=== PATIENT | male | born 1940 | race Caucasian/White ===

== ENCOUNTER 2017-10-02 13:25 | Outpatient (CLI) | payer OTHER ==
--- NOTE | 2017-10-02 14:38 | ULT ---
RIGHT LOWER EXTREMITY VENOUS ULTRASOUND WITH DOPPLER: History: Pain. Comparison: None. Technique: Grayscale, color flow, doppler imaging and spectral waveform analysis performed of the rig ht lower extremity venous system. FINDINGS: There is compressibility, presence of flow, and augmentation in the common femoral vein, femoral vein , and popliteal vein. There is flow in the greater saphenous vein, profunda vein, and posterior tibia l vein. IMPRESSION: No evidence of thrombus in the right lower extremity venous system. POS: ROSARIO
== END 2017-10-02 13:26 | disposition home or self-care (01) ==
LOC: ULT 13:25
PROVIDERS: ATTEND Family Medicine
DX: M79.651 Pain in right thigh (principal)

== ENCOUNTER 2018-04-23 08:38 | Outpatient (CLI) | payer OTHER | END 2018-04-23 08:39 | disposition home or self-care (01) | LOC: BICRAD 08:38 | PROVIDERS: ATTEND Internal Medicine Critical Care Medicine | DX: R06.00 Dyspnea, unspecified (principal); J98.6 Disorders of diaphragm; J92.9 Pleural plaque without asbestos; R91.8 Other nonspecific abnormal finding of lung field; I70.0 Atherosclerosis of aorta | CPT/HCPCS: 71046 ==

== ENCOUNTER 2018-10-09 12:24 | Outpatient (CLI) | payer OTHER ==
--- NOTE | 2018-10-09 13:45 | RAD ---
PA AND LATERAL CHEST: Comparison: 04-23-18 History: Cough. FINDINGS: Heart size is upper limits of normal. There is chronic appearing pleural change in the right base. I do not see any focal infiltrative process. IMPRESSION: Stable chest. POS: ORION
== END 2018-10-09 12:25 | disposition home or self-care (01) ==
LOC: BICRAD 12:24
PROVIDERS: ATTEND Family Medicine
DX: J20.9 Acute bronchitis, unspecified (principal)
CPT/HCPCS: 71046

== ENCOUNTER 2018-12-30 00:19 | Outpatient (CLI) | payer MEDICARE ==
[2018-12-30 18:20] LABS: #Basophils 0.1 thou/uL (0.0-0.2); #Eosinphils 0.5 thou/uL (0.0-0.7); #Lymphocytes 2.2 thou/uL (1.20-3.40); #Monocytes 0.8 thou/uL (0.11-0.59); #Neutrophils 5.1 thou/uL (1.40-6.50); %Basophils 0.7 % (0.0-1.0); %Eosinophils 5.5 % (0.0-10.0); %Lymphocytes 25.6 % (21.0-51.0); %Monocytes 8.8 % (0.0-10.0); %Neutrophils 59.4 % (42.0-75.0); Hemoglobin 13.9 g/dL (14.0-18.0); Mean Corpuscular HGB CONC 32.8 g/dL (32.0-36.0); Mean Corpuscular Hemoglobin 30.4 pg (27.0-31.0); Mean Corpuscular Volume 92.8 fL (78.0-98.0); Mean Platelet Volume 6.8 fL (7.4-10.4); Platelet Count 313 thou/uL (130-400); RBC Distribution Width 12.9 % (11.5-14.5); Red Blood Cell (RBC) Count 4.57 mill/uL (4.70-6.10); White Blood Cell (WBC) Count 8.5 thou/uL (4.8-10.8)
[2018-12-30 18:22] LABS: Bilirubin Negative (Negative); Blood, Urine Negative (Negative); Clarity CLEAR (Clear); Glucose, Urine (Dipstick) 100 mg/dL (Negative); Leukocyte Negative (Negative); Nitrite Negative (Negative); Protein, Urine (Dipstick) Negative (Neg-Trace); Specific Gravity, Urine 1.019 (1.002-1.036); Urobilinogen 0.2 mg/dL (0.2-1.0); pH, Urine 5.5 (5.0-9.0)
[2018-12-30 18:25] LABS: Bacteria/HPF None Seen HPF (None Seen); Hyaline Casts/LPF 0-3 HYALINE CAST LPF (0-3 Hyaline); Squamous Epithelial None Seen HPF (0-3); WBC/HPF None Seen HPF (0-3)
[2018-12-30 18:26] LABS: INR-International Normal Ratio 0.9; PTT 27.1 SEC (22.9-36.1)
[2018-12-30 18:37] LABS: Anion Gap 15 mmol/L (10-20); BUN (Urea Nitrogen) 23 mg/dL (8.4-25.7); Calc. Creatinine Clearance 0 mL/min (70-130); Calcium 10.1 mg/dL (7.8-10.44); Carbon Dioxide 29 mmol/L (23-31); Chloride 101 mmol/L (98-107); Estimated GFR-MDRD 69; Glucose 180 mg/dL (83-110); Potassium 3.6 mmol/L (3.5-5.1); Sodium 141 mmol/L (136-145)
--- NOTE | 2019-01-01 07:40 | EKG ---
Test Reason : Blood Pressure : / mmHG Vent. Rate : 069 BPM Atrial Rate : 069 BPM P-R Int : 160 ms QRS Dur : 092 ms QT Int : 422 ms P-R-T Axes : 022 -09 044 degrees QTc Int : 452 ms Normal sinus rhythm Moderate voltage criteria for LVH, may be normal variant Possible Inferior infarct , age undetermined Abnormal ECG When compared with ECG of 03-APR-2013 20:25, Borderline criteria for Inferior infarct are now Present Nonspecific T wave abnormality has replaced inverted T waves in Inferior leads Nonspecific T wave abnormality has replaced inverted T waves in Anterior leads Confirmed by EBONY ALFONSO ([id number]) on 01/01/2019 7:40:06 AM Referred By: VALERIANO Confirmed By:EBONY ALFONSO
== END 2018-12-30 00:20 | disposition home or self-care (01) ==
LOC: LABBT 00:19
PROVIDERS: ATTEND Orthopaedic Surgery
DX: Z01.818 Encounter for other preprocedural examination (principal); M17.11 Unilateral primary osteoarthritis, right knee
CPT/HCPCS: 80048; 81001; 85025; 85610; 85730; 86850; 86900; 86901; 87081; 93005; 93010

== ENCOUNTER 2019-01-05 05:27 | Inpatient (IN) | payer MEDICARE ==
[2018-12-30 17:21] VITALS: BMI 30.1
--- NOTE | 2019-01-01 09:07 | HP ---
HISTORY OF PRESENT ILLNESS: The patient is a 78-year-old male with a long history of progressive problems with the right knee without injury. He has had progressive pain despite rest, restriction of activities, use of anti-inflammatory medications, and cortisone injections. The pain is now interfering with day-to-day activities including walking, getting dressed, and sleeping. PAST MEDICAL HISTORY: The patient has history of hypertension, gout, and diabetes. 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 CURRENT MEDICATIONS: Include: 1. Aspirin. 2. [place]-3. 3. Lipitor. 4. Valsartan. 5. Allopurinol. 6. Levothyroxine. 7. Chlorthalidone. 8. Metformin. ALLERGIES: HE HAS NO KNOWN ALLERGIES. FAMILY HISTORY: Otherwise unremarkable. SOCIAL HISTORY: Otherwise unremarkable. REVIEW OF SYSTEMS: Otherwise unremarkable. PHYSICAL EXAMINATION: GENERAL: Reveals a healthy male. HEENT: Unremarkable. NECK: Supple. CHEST: Clear HEART: Regular rate and rhythm. ABDOMEN: Soft, nontender. RECTAL: Deferred. GENITAL: Deferred. EXTREMITIES: Pertinent findings are related to the right knee. There is a trace effusion. There is a slight varus. There is tenderness over the medial joint line. Range of motion is 5 to 125 degrees. There is pain with further flexion. There is no instability. NEUROVASCULAR: Intact. Good capillary refill. There is right antalgic gait. DIAGNOSTIC STUDIES: X-rays of the knee reveal medial joint space narrowing and a large osteochondral defect in the weightbearing surface of the medial femoral condyle consistent with osteonecrosis with definite progression from previous x-rays. IMPRESSION: 1. Degenerative arthritis and osteonecrosis, right knee. 2. History of diabetes. 3. History of hypertension. 4. 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 PLAN: Right total knee replacement. The nature of surgery, length of recovery, and potential complications such as infection, loss of motion, incomplete relief, delayed wound healing, neurovascular injury, thromboembolic phenomena, possible transfusion, and need for revision have been discussed in detail. Job ID: [id number]
[2019-01-05] MEDS ORDERED: Vancomycin HCl 1.5 GM in Sodium Chloride 0.9% 250 ML 300 ML IVPB SCH ×2 (06:00→20:00)
[2019-01-05] MEDS ORDERED: CEFAZOLIN 2 GM in Premix Bag 1 BAG IVPB SCH (06:00)
[2019-01-05] MEDS ORDERED: Sodium Chloride 0.9% 100 ML ONE (06:20)
[2019-01-05] MEDS ORDERED: Tranexamic Acid 1,000 MG/10 ML VIAL ONE ×2 (06:20→08:54)
[2019-01-05] MEDS ORDERED: Fentanyl 100 MCG/2 ML VIAL ONE ×3 (06:34→09:25)
[2019-01-05] MEDS ORDERED: Midazolam HCl 2 mg/2 ml Vial ONE (06:34)
[2019-01-05] MEDS ORDERED: Promethazine HCl 25 MG/ML VIAL IM PRN (07:33)
[2019-01-05] MEDS ORDERED: Ropivacaine HCl/PF 250 ML in Premix Bag 1 BAG NERVE BLCK SCH (07:33)
[2019-01-05] MEDS ORDERED: Ondansetron PF 4 MG/2 ML Vial IVP PRN ×2 (07:33→09:17)
[2019-01-05] MEDS ORDERED: Zolpidem Tartrate 5 MG TAB PO PRN ×2 (07:33→09:17)
[2019-01-05] MEDS ORDERED: traMADol HCl 50 MG TAB PO PRN ×3 (07:33→09:17)
[2019-01-05] MEDS ORDERED: Fentanyl 100 MCG/2 ML VIAL IV PRN (07:33)
[2019-01-05] MEDS ORDERED: Bupivacaine HCl 0.5%/Epinephrine 1:200,000/PF 30 ml Vial ONE (07:39)
[2019-01-05] MEDS ORDERED: Ketorolac Tromethamine 30 MG/ML VIAL ONE (09:08)
[2019-01-05] MEDS ORDERED: Tranexamic Acid 1,000 MG in Sodium Chloride 0.9% 100 ML IVPB SCH ×2 (09:15→09:17)
[2019-01-05] MEDS ORDERED: Fentanyl 100 MCG/2 ML VIAL SLOW IVP PRN ×2 (09:17)
[2019-01-05] MEDS ORDERED: diphenhydrAMINE 25 MG CAP PO PRN (09:17)
[2019-01-05] MEDS ORDERED: Promethazine HCl 25 MG/ML VIAL SLOW IVP PRN (09:17)
[2019-01-05] MEDS ORDERED: Acetaminophen 325 MG TAB PO PRN (09:17)
[2019-01-05] MEDS ORDERED: HYDROcodone/Acetaminophen 10/325 mg Tablet PO PRN ×2 (09:17)
--- NOTE | 2019-01-05 09:39 | OP ---
DATE OF PROCEDURE: 01/05/2019 SHOPPING INVESTIGATOR: Janel Low PA-C. ANESTHESIA: General plus adductor canal and sciatic nerve blocks. PREOPERATIVE DIAGNOSIS: Degenerative arthritis, right knee. POSTOPERATIVE DIAGNOSIS: Degenerative arthritis, right knee. PROCEDURE PERFORMED: Right total knee replacement with computer-assisted navigation with cemented [place] triathlon components (#5 femoral component, #5 primary tibial base plate with 9 mm CS plastic insert, and A35 all plastic patellar component). DESCRIPTION OF PROCEDURE: After satisfactory anesthesia was induced in supine position, sequential compression device was placed on the nonoperative leg throughout the procedure. The right leg was then prepped and draped in routine sterile fashion. The right leg was elevated and exsanguinated with an Esmarch bandage and the tourniquet was inflated to 300 mmHg. A gently curved medial parapatellar incision was made, carried down through the subcutaneous tissues and bleeding points controlled with Bovie cautery. Medial parapatellar arthrotomy was performed of the patella, this was carried laterally and portions of the fat pad were excised for exposure. There was marked degenerative arthritis of the knee especially medially with large areas of exposed bone and areas suggesting osteonecrosis of medial femoral condyle. Using the [email or web address] pinless navigation system and the appropriate guides, the distal femoral and proximal tibial articular surfaces were excised with an oscillating saw to accept the trial components. It was felt that #5 femoral component and #5 tibial base plate with 9 mm CS plastic insert gave appropriate size, fit, stability, and correction of the preoperative deformity. The patellar articular surface was excised to accept all plastic A35 patellar component. There was good range of motion and good patellar tracking. The trial components were removed. The knee was copiously irrigated with pulsatile lavage. The bony surfaces thoroughly cleaned and dried. The permanent components were then cemented in a single stage using one pack of cement premixed with 1 g of tobramycin powder. Excess cement was removed. There was again good fit and stability of components. The knee was again copiously irrigated. The skin was infiltrated with 30 mL of 0.25% Marcaine with epinephrine. The medial retinaculum and quadriceps mechanism were closed with interrupted #2 Vicryl and a running #2 Quill. Subcutaneous tissues were closed with running 0 Quill suture and the skin closed with running subcuticular 3-0 Monoderm and SurgiSeal skin adhesive. A sterile bulky compressive dressing was applied and the tourniquet deflated for 70 minutes. The foot promptly pinked up. A sequential compression device was applied to the operated leg. He was awakened, taken to recovery in stable condition. There were no apparent intraoperative complications. The estimated blood loss was less than 100 mL. Job ID: [id number]
[2019-01-05] MEDS ORDERED: Insulin Regular 300 UNITS/3 ML VIAL SC PRN ×2 (09:57)
[2019-01-05] MEDS ORDERED: Dextrose 5% in Water 1,000 ML IV PRN (09:57)
[2019-01-05] MEDS ORDERED: Bisacodyl 10 MG SUPP PR PRN (09:57)
[2019-01-05] MEDS ORDERED: Calcium Carbonate 500 MG ChewTAB PO PRN (09:57)
[2019-01-05] MEDS ORDERED: Dextrose 50% Abboject 50 ML SYRINGE SLOW IVP PRN (09:57)
[2019-01-05] MEDS ORDERED: Polyethylene Glycol 3350 17 GM Packet PO PRN (09:59)
[2019-01-05] MEDS ORDERED: Milk Of Magnesia 30 ML UDCUP PO PRN (09:59)
[2019-01-05] MEDS ORDERED: Eucerin (Mineral Oil/Petrolatum,White) 30 gm Jar TOP PRN (09:59)
--- NOTE | 2019-01-05 10:11 | RAD ---
RIGHT KNEE 2 VIEWS: HISTORY: Postop total knee. COMPARISON: None. FINDINGS: Satisfactory appearance of the right total knee arthroplasty and total resurfacing. Expected postope rative gas and edema. No complication. IMPRESSION: Satisfactory postoperative appearance. POS: ROSARIO
[2019-01-05] MEDS: Sodium Chloride 0.9% 1,000 ML IV SCH ×2 (10:35→19:04)
[2019-01-05] MEDS ORDERED: Ropivacaine 0.5% HCl/PF (150 MG/30 ML VIAL) ONE (11:23)
[2019-01-05] MEDS ORDERED: Ropivacaine 0.2% HCl/PF (40 MG/20 ML VIAL) ONE (11:23)
[2019-01-05] MEDS ORDERED: Lidocaine 1% PF 5 ML VIAL ONE (11:44)
[2019-01-05] MEDS ORDERED: Ondansetron PF 4 MG/2 ML Vial ONE (11:44)
[2019-01-05] MEDS ORDERED: PROPOFOL 200 MG/20 ML VIAL ONE (11:44)
[2019-01-05] MEDS: Ketorolac Tromethamine 30 MG/ML VIAL IVP SCH ×3 (13:12→23:22)
[2019-01-05] MEDS ORDERED: Cepastat Lozenges 1 LOZ PO PRN (14:56)
[2019-01-05] MEDS ORDERED: Diabetic Tussin 200 MG/10 ML UDCUP PO PRN (14:56)
[2019-01-05] MEDS ORDERED: Loperamide HCl 2 MG CAP PO PRN (14:56)
[2019-01-05] MEDS ORDERED: hydrALAZINE 20 MG/ML VIAL SLOW IVP PRN (14:56)
[2019-01-05] MEDS ORDERED: Loratadine 10 MG TAB PO PRN (14:56)
[2019-01-05] MEDS ORDERED: Sodium Chloride 0.65% Nasal 44 ML BOT EA NARE PRN (14:56)
[2019-01-05] MEDS: HYDROcodone/Acetaminophen 10/325 mg Tablet PO PRN ×3 (15:05→23:21)
[2019-01-05] MEDS: CEFAZOLIN 2 GM in Premix Bag 1 BAG IVPB SCH ×2 (15:06→23:21)
--- NOTE | 2019-01-05 15:21 | PDOC.PN ---
- Subjective Encounter Start Date: 01/05/19 Encounter Start Time: 15:00 -: old records requested/rev admitted for right TKR, consulted for medical management Patient seen and examined. No new complaints. overall doing well post op - Objective Resuscitation Status - Order Detail: 01/05/19 14:56 Resuscitation Status Routine Resuscitation Status: FULL: Full Resuscitation MAR Reviewed: Yes Vital Signs & Weight: Vital Signs (12 hours) Temp Pulse Resp BP Pulse Ox 01/05/19 11:22 97 01/05/19 09:57 97.5 F L 57 L 18 138/83 97 Weight Weight 198 lb Additional Labs: Accuchecks 01/05/19 11:39 POC Glucose 104 old labs reviewed and all cbc, bmp normal Radiology Reviewed by me: Yes (knee xray reviewed) Phys Exam - Physical Examination Constitutional: NAD HEENT: PERRLA, moist MMs, sclera anicteric Neck: no JVD, supple Respiratory: no wheezing, no rales, no rhonchi Cardiovascular: RRR, no significant murmur, no rub Gastrointestinal: soft, non-tender, no distention, positive bowel sounds Musculoskeletal: no edema, pulses present right knee with dressing, nerve block in place Neurological: non-focal, normal sensation, moves all 4 limbs Lymphatic: no nodes Psychiatric: normal affect, A&O x 3 Skin: no rash, normal turgor Dx/Plan (1) Status post total right knee replacement Code(s): Z96.651 - PRESENCE OF RIGHT ARTIFICIAL KNEE JOINT Status: Acute (2) Diabetes type 2, controlled Code(s): E11.9 - TYPE 2 DIABETES MELLITUS WITHOUT COMPLICATIONS Status: Chronic (3) Gout Code(s): M10.9 - GOUT, UNSPECIFIED Status: Chronic (4) Hypertension Code(s): I10 - ESSENTIAL (PRIMARY) HYPERTENSION Status: Chronic (5) Hypothyroidism Code(s): E03.9 - HYPOTHYROIDISM, UNSPECIFIED Status: Chronic (6) Obesity (BMI 30.0-34.9) Code(s): E66.9 - OBESITY, UNSPECIFIED Status: Chronic - Plan cont current plan of care, PT/OT * home medication reconciled * medication reviewed as below * symptomatic treatment * pain controlled * nerve block as per anesthesia * PT/OT as per [facility]U protocol * pepcid for GI prophylaxis * continue aspirin for DVT prophylaxis * post operative care as per surgeon * code status full code * will follow * medically stable for now. Review of Systems - Review of Systems ENT: negative: Ear Pain, Ear Discharge, Nose Pain, Nose Discharge, Nose Congestion, Mouth Pain, Mouth Swelling, Throat Pain, Throat Swelling, Other Respiratory: negative: Cough, Dry, Shortness of Breath, Hemoptysis, SOB with Excertion, Pleuritic Pain, Sputum, Wheezing Cardiovascular: negative: chest pain, palpitations, orthopnea, paroxysmal nocturnal dyspnea, edema, light headedness, other Gastrointestinal: negative: Nausea, Vomiting, Abdominal Pain, Diarrhea, Constipation, Melena, Hematochezia, Other Genitourinary: negative: Dysuria, Frequency, Incontinence, Hematuria, Retention , Other Musculoskeletal: negative: Neck Pain, Shoulder Pain, Arm Pain, Back Pain, Hand Pain, Leg Pain, Foot Pain, Other Skin: negative: Rash, Lesions, Felipe, Bruising, Other - Medications/Allergies Allergies/Adverse Reactions: Allergies Allergy/AdvReac Type Severity Reaction Status Date / Time No Known Allergies Allergy Verified 12/30/18 17:22 Medications: Current Medications Acetaminophen (Tylenol) 650 mg PO Q4H PRN PRN Reason: Headache/Fever or Pain Hydrocodone Bitart/Acetaminophen ([place] 10/325) 1 tab PO Q4H PRN PRN Reason: Pain (1-3) Last Admin: 01/05/19 15:05 Dose: 1 tab Hydrocodone Bitart/Acetaminophen ([place] 10/325) 2 tab PO Q4H PRN PRN Reason: PAIN (4-6) Allopurinol (Zyloprim) 100 mg PO BID [facility] Aspirin (Ecotrin) 81 mg PO BID [facility] Atorvastatin Calcium (Lipitor) 10 mg PO QPM [facility] Bisacodyl (Dulcolax) 10 mg [place] DAILYPRN PRN PRN Reason: Constipation Calcium Carbonate (Tums) 1,000 mg PO Q4H PRN PRN Reason: Heartburn or Indigestion Chlorthalidone (Hygroton) 12.5 mg PO DAILY [facility] Dextrose/Water (Dextrose 50%) 25 gm SLOW IVP PRN PRN PRN Reason: Hypoglycemia Diphenhydramine HCl (Benadryl) 25 mg PO Q6H PRN PRN Reason: Itching Famotidine (Pepcid) 20 mg PO BID [facility] Fentanyl (Sublimaze) 50 mcg IV Q1H PRN PRN Reason: BREAKTHROUGH PAIN [facility] Fish Oil (Fish Oil) 1,000 mg PO BID [facility] Glucagon (Glucagon) 1 mg IM PRN PRN PRN Reason: Hypoglycemia Guaifenesin (Robitussin Sf) 200 mg PO Q4H PRN PRN Reason: Cough Hydralazine HCl (Apresoline) 10 mg SLOW IVP Q4H PRN PRN Reason: SBP > 180 and HR < 70 Ropivacaine 250 ml/ Device 250 mls @ 0 mls/hr NERVE BLCK INF [facility] Cefazolin Sodium/Dextrose 2 gm (/ Device) 50 mls @ 100 mls/hr IVPB 0700,1500, 2300 [facility] Stop: 01/05/19 23:29 Last Admin: 01/05/19 15:06 Dose: 50 mls Sodium Chloride (Normal Saline 0.9%) 1,000 mls @ 100 mls/hr IV .Q10H [facility] Last Admin: 01/05/19 10:35 Dose: Not Given Vancomycin HCl 1.5 gm/ Sodium (Chloride) 300 mls @ 200 mls/hr IVPB 2000 [facility] Stop: 01/05/19 21:29 Dextrose/Water (D5w) 1,000 mls @ 0 mls/hr IV .Q0M PRN PRN Reason: Hypoglycemia Insulin Human Regular (Humulin R) 0 units SC .MILD SLIDING SCALE PRN PRN Reason: Mild Correctional Scale Insulin Human Regular (Humulin R) 0 units SC .BEDTIME SLIDING SC PRN PRN Reason: Bedtime Correctional Scale Iron/Minerals/Multivitamins (Theragran M) 1 tab PO DAILY [facility] Ketorolac Tromethamine (Toradol) 15 mg IVP Q6HR [facility] Stop: 01/07/19 12:01 Last Admin: 01/05/19 13:12 Dose: Not Given Levothyroxine Sodium (Synthroid) 100 mcg PO 0600 [facility] Loperamide HCl (Imodium) 2 mg PO PRN PRN PRN Reason: Diarrhea/Loose Stools Loratadine (Claritin) 10 mg PO DAILYPRN PRN PRN Reason: Sinus Symptoms Magnesium Hydroxide (Milk Of Magnesium) 30 ml PO DAILYPRN PRN PRN Reason: Constipation Metformin HCl (Glucophage Xr) 1,000 mg PO BID-[facility] Mineral Oil/White Petrolatum (Eucerin Cream) 0 gm TOP BIDPRN PRN PRN Reason: Dry Skin Ondansetron HCl (Zofran) 4 mg IVP Q6H PRN PRN Reason: Nausea/Vomiting Polyethylene Glycol (Miralax) 17 gm PO DAILY PRN PRN Reason: Constipation Promethazine HCl (Phenergan) 12.5 mg IM Q4H PRN PRN Reason: Nausea Promethazine HCl (Phenergan) 12.5 mg SLOW IVP Q4H PRN PRN Reason: Nausea/Vomiting Senna/Docusate Sodium (Senokot S) 2 tab PO BID [facility] Sodium Chloride (Flush - Normal Saline) 10 ml IVF PRN PRN PRN Reason: Saline Flush Sodium Chloride ([place] Nasal [place] 0.65%) 0 ml EA NARE QIDPRN PRN PRN Reason: Nasal Congestion Throat Lozenges (Cepastat Lozenges) 1 nando PO Q2H PRN PRN Reason: Sore Throat Tramadol HCl (Ultram) 50 mg PO Q6H PRN PRN Reason: Mild Pain (1-3) Tramadol HCl (Ultram) 100 mg PO Q6H PRN PRN Reason: Moderate Pain 4-6 Valsartan (Diovan) 160 mg PO QPM [facility] Zolpidem Tartrate (Ambien) 5 mg PO HSPRN PRN PRN Reason: Insomnia
[2019-01-05] MEDS: metFORMIN XR 500 MG TAB PO SCH (17:30)
[2019-01-05] MEDS: Aspirin 81 mg Enteric Coated Tablet PO SCH (20:38)
[2019-01-05] MEDS: Allopurinol 100 MG TAB PO SCH (20:38)
[2019-01-05] MEDS: Fish Oil 1,000 MG CAP PO SCH (20:39)
[2019-01-05] MEDS: Famotidine 20 MG TAB PO SCH (20:39)
[2019-01-05] MEDS ORDERED: Atorvastatin Calcium 10 MG TAB PO SCH (21:00)
[2019-01-05] MEDS ORDERED: Valsartan 80 MG TAB PO SCH (21:00)
[2019-01-06] MEDS: HYDROcodone/Acetaminophen 10/325 mg Tablet PO PRN ×3 (03:51→12:54)
[2019-01-06] MEDS: Ketorolac Tromethamine 30 MG/ML VIAL IVP SCH ×2 (05:12→12:45)
[2019-01-06] MEDS: Sodium Chloride 0.9% 1,000 ML IV SCH ×2 (05:13→16:00)
[2019-01-06 06:00] LABS: Hemoglobin 10.3 g/dL (14.0-18.0); Mean Corpuscular HGB CONC 32.6 g/dL (32.0-36.0); Mean Corpuscular Volume 95.1 fL (78.0-98.0); Mean Platelet Volume 6.8 fL (7.4-10.4); Platelet Count 229 thou/uL (130-400); RBC Distribution Width 12.7 % (11.5-14.5); Red Blood Cell (RBC) Count 3.34 mill/uL (4.70-6.10); White Blood Cell (WBC) Count 9.1 thou/uL (4.8-10.8)
[2019-01-06] MEDS ORDERED: Levothyroxine Sodium 100 MCG TAB PO SCH (06:00)
[2019-01-06] MEDS ORDERED: Ferrous Gluconate 324 MG TAB PO SCH (08:00)
[2019-01-06] MEDS: Fish Oil 1,000 MG CAP PO SCH (08:33)
[2019-01-06] MEDS: Aspirin 81 mg Enteric Coated Tablet PO SCH (08:33)
[2019-01-06] MEDS: Allopurinol 100 MG TAB PO SCH (08:34)
[2019-01-06] MEDS: metFORMIN XR 500 MG TAB PO SCH (08:35)
[2019-01-06] MEDS: Famotidine 20 MG TAB PO SCH (08:36)
[2019-01-06] MEDS ORDERED: Chlorthalidone 25 MG TAB PO SCH (09:00)
[2019-01-06] MEDS ORDERED: Senokot S 8.6-50 MG TAB PO SCH (09:00)
[2019-01-06] MEDS ORDERED: Multivitamin W/ Minerals 1 TAB PO SCH (09:00)
--- NOTE | 2019-01-06 11:50 | PDOC.PN ---
- Subjective Encounter Start Date: 01/06/19 Encounter Start Time: 07:45 Patient seen and examined. No new complaints. No overnight events - Objective Resuscitation Status - Order Detail: 01/05/19 14:56 Resuscitation Status Routine Resuscitation Status: FULL: Full Resuscitation MAR Reviewed: Yes Vital Signs & Weight: Vital Signs (12 hours) Temp Pulse Resp BP BP Pulse Ox 01/06/19 07:34 98.3 F 66 18 116/72 95 01/06/19 07:31 96 01/06/19 03:52 97.7 F 66 18 129/68 96 Weight Admit Weight 198 lb Weight 198 lb I&O: 01/05/19 01/06/19 01/07/19 06:59 06:59 06:59 Intake Total 2850 Balance 2850 Result Diagrams: 01/06/19 05:07 Additional Labs: Accuchecks 01/06/19 01/06/19 01/05/19 11:30 05:50 21:06 POC Glucose 90 98 94 01/05/19 16:10 POC Glucose 89 Phys Exam - Physical Examination Constitutional: NAD HEENT: PERRLA, moist MMs, sclera anicteric Neck: no JVD, supple Respiratory: no wheezing, no rales, no rhonchi Cardiovascular: RRR, no significant murmur, no rub Gastrointestinal: soft, non-tender, no distention, positive bowel sounds Musculoskeletal: no edema, pulses present right knee with dressing, nerve bloc in place Neurological: non-focal, normal sensation, moves all 4 limbs Lymphatic: no nodes Psychiatric: normal affect, A&O x 3 Skin: no rash, normal turgor Dx/Plan (1) Anemia, normocytic normochromic Code(s): D64.9 - ANEMIA, UNSPECIFIED Status: Acute (2) Status post total right knee replacement Code(s): Z96.651 - PRESENCE OF RIGHT ARTIFICIAL KNEE JOINT Status: Acute (3) Diabetes type 2, controlled Code(s): E11.9 - TYPE 2 DIABETES MELLITUS WITHOUT COMPLICATIONS Status: Chronic (4) Gout Code(s): M10.9 - GOUT, UNSPECIFIED Status: Chronic (5) Hypertension Code(s): I10 - ESSENTIAL (PRIMARY) HYPERTENSION Status: Chronic (6) Hypothyroidism Code(s): E03.9 - HYPOTHYROIDISM, UNSPECIFIED Status: Chronic (7) Obesity (BMI 30.0-34.9) Code(s): E66.9 - OBESITY, UNSPECIFIED Status: Chronic - Plan cont current plan of care, plan discussed w/ family, PT/OT * medication reviewed as below * symptomatic treatment * pain controlled * nerve block as per anesthesia * PT/OT as per [facility] protocol * pepcid for GI prophylaxis * continue aspirin for DVT prophylaxis * discharge as per primary team * medically stable for now.. Review of Systems - Review of Systems ENT: negative: Ear Pain, Ear Discharge, Nose Pain, Nose Discharge, Nose Congestion, Mouth Pain, Mouth Swelling, Throat Pain, Throat Swelling, Other Respiratory: negative: Cough, Dry, Shortness of Breath, Hemoptysis, SOB with Excertion, Pleuritic Pain, Sputum, Wheezing Cardiovascular: negative: chest pain, palpitations, orthopnea, paroxysmal nocturnal dyspnea, edema, light headedness, other Gastrointestinal: negative: Nausea, Vomiting, Abdominal Pain, Diarrhea, Constipation, Melena, Hematochezia, Other Genitourinary: negative: Dysuria, Frequency, Incontinence, Hematuria, Retention , Other Musculoskeletal: negative: Neck Pain, Shoulder Pain, Arm Pain, Back Pain, Hand Pain, Leg Pain, Foot Pain, Other - Medications/Allergies Allergies/Adverse Reactions: Allergies Allergy/AdvReac Type Severity Reaction Status Date / Time No Known Allergies Allergy Verified 12/30/18 17:22 Medications: Current Medications Acetaminophen (Tylenol) 650 mg PO Q4H PRN PRN Reason: Headache/Fever or Pain Hydrocodone Bitart/Acetaminophen ([place] 10/325) 1 tab PO Q4H PRN PRN Reason: Pain (1-3) Last Admin: 01/06/19 03:51 Dose: 1 tab Hydrocodone Bitart/Acetaminophen ([place] 10/325) 2 tab PO Q4H PRN PRN Reason: PAIN (4-6) Last Admin: 01/06/19 08:30 Dose: 2 tab Allopurinol (Zyloprim) 100 mg PO BID [facility] Last Admin: 01/06/19 08:34 Dose: 100 mg Aspirin (Ecotrin) 81 mg PO BID [facility] Last Admin: 01/06/19 08:33 Dose: 81 mg Atorvastatin Calcium (Lipitor) 10 mg PO QPM [facility] Last Admin: 01/05/19 20:38 Dose: 10 mg Bisacodyl (Dulcolax) 10 mg [place] DAILYPRN PRN PRN Reason: Constipation Calcium Carbonate (Tums) 1,000 mg PO Q4H PRN PRN Reason: Heartburn or Indigestion Chlorthalidone (Hygroton) 12.5 mg PO DAILY [facility] Last Admin: 01/06/19 08:34 Dose: 12.5 mg Dextrose/Water (Dextrose 50%) 25 gm SLOW IVP PRN PRN PRN Reason: Hypoglycemia Diphenhydramine HCl (Benadryl) 25 mg PO Q6H PRN PRN Reason: Itching Famotidine (Pepcid) 20 mg PO BID [facility] Last Admin: 01/06/19 08:36 Dose: 20 mg Fentanyl (Sublimaze) 50 mcg IV Q1H PRN PRN Reason: BREAKTHROUGH PAIN Ferrous Gluconate (Fergon) 324 mg PO BID[facility] Last Admin: 01/06/19 08:33 Dose: 324 mg Fish Oil (Fish Oil) 1,000 mg PO BID [facility] Last Admin: 01/06/19 08:33 Dose: 1,000 mg Glucagon (Glucagon) 1 mg IM PRN PRN PRN Reason: Hypoglycemia Guaifenesin (Robitussin Sf) 200 mg PO Q4H PRN PRN Reason: Cough Hydralazine HCl (Apresoline) 10 mg SLOW IVP Q4H PRN PRN Reason: SBP > 180 and HR < 70 Ropivacaine 250 ml/ Device 250 mls @ 0 mls/hr NERVE BLCK INF [facility] Sodium Chloride (Normal Saline 0.9%) 1,000 mls @ 100 mls/hr IV .Q10H [facility] Last Admin: 01/06/19 05:13 Dose: Not Given Dextrose/Water (D5w) 1,000 mls @ 0 mls/hr IV .Q0M PRN PRN Reason: Hypoglycemia Insulin Human Regular (Humulin R) 0 units [place] .MILD SLIDING SCALE PRN PRN Reason: Mild Correctional Scale Insulin Human Regular (Humulin R) 0 units SC .BEDTIME SLIDING SC PRN PRN Reason: Bedtime Correctional Scale Iron/Minerals/Multivitamins (Theragran M) 1 tab PO DAILY [facility] Last Admin: 01/06/19 08:34 Dose: 1 tab Ketorolac Tromethamine (Toradol) 15 mg IVP Q6HR [facility] Stop: 02/27/19 12:01 Last Admin: 01/06/19 05:12 Dose: 15 mg Levothyroxine Sodium (Synthroid) 100 mcg PO 0600 [facility] Last Admin: 01/06/19 05:12 Dose: 100 mcg Loperamide HCl (Imodium) 2 mg PO PRN PRN PRN Reason: Diarrhea/Loose Stools Loratadine (Claritin) 10 mg PO DAILYPRN PRN PRN Reason: Sinus Symptoms Magnesium Hydroxide (Milk Of Magnesium) 30 ml PO DAILYPRN PRN PRN Reason: Constipation Metformin HCl (Glucophage Xr) 1,000 mg PO BID[facility] Last Admin: 01/06/19 08:35 Dose: 500 mg Mineral Oil/White Petrolatum (Eucerin Cream) 0 gm TOP BIDPRN PRN PRN Reason: Dry Skin Ondansetron HCl (Zofran) 4 mg IVP Q6H PRN PRN Reason: Nausea/Vomiting Polyethylene Glycol (Miralax) 17 gm PO DAILY PRN PRN Reason: Constipation Promethazine HCl (Phenergan) 12.5 mg IM Q4H PRN PRN Reason: Nausea Promethazine HCl (Phenergan) 12.5 mg SLOW IVP Q4H PRN PRN Reason: Nausea/Vomiting Senna/Docusate Sodium (Senokot S) 2 tab PO BID [facility] Last Admin: 01/06/19 08:35 Dose: 2 tab Sodium Chloride (Flush - Normal Saline) 10 ml IVF PRN PRN PRN Reason: Saline Flush Sodium Chloride ([place] Nasal [place] 0.65%) 0 ml EA NARE QIDPRN PRN PRN Reason: Nasal Congestion Throat Lozenges (Cepastat Lozenges) 1 nando PO Q2H PRN PRN Reason: Sore Throat Tramadol HCl (Ultram) 50 mg PO Q6H PRN PRN Reason: Mild Pain (1-3) Tramadol HCl (Ultram) 100 mg PO Q6H PRN PRN Reason: Moderate Pain 4-6 Valsartan (Diovan) 160 mg PO QPM [facility] Last Admin: 01/05/19 20:38 Dose: 160 mg Zolpidem Tartrate (Ambien) 5 mg PO HSPRN PRN PRN Reason: Insomnia
[2019-01-06 15:52] VITALS: BP 125/72; TEMP 97.8
== END 2019-01-06 16:58 | disposition home or self-care (01) | DRG 470 ==
LOC: SDC 05:27 → SJJU 09:00 → SDC 13:30 → SJJU 13:30 → EDSTATUS 17:15
PROVIDERS: ADMIT Orthopaedic Surgery; ATTEND Orthopaedic Surgery
PROC: 0SRC0J9 Replacement of Right Knee Joint with Synthetic Substitute, Cemented, Open Approach (ICD-10-PCS; principal; 2019-01-05)
DX: M17.11 Unilateral primary osteoarthritis, right knee (principal); I10 Essential (primary) hypertension; M10.9 Gout, unspecified; E11.9 Type 2 diabetes mellitus without complications; E03.9 Hypothyroidism, unspecified; E66.9 Obesity, unspecified; D64.9 Anemia, unspecified; Z90.2 Acquired absence of lung [part of]; Z79.82 Long term (current) use of aspirin; Z79.84 Long term (current) use of oral hypoglycemic drugs; Z86.012 Personal history of benign carcinoid tumor; Z68.30 Body mass index [BMI] 30.0-30.9, adult
CPT/HCPCS: 36415; 36416; 85027; C1713; C1776; J0670; J1885; J2001; J2250; J2405; J2704; J2795; J3010; J3370; J7050

== ENCOUNTER 2020-08-10 11:03 | Outpatient (CLI) | payer MEDICARE ==
--- NOTE | 2020-08-10 14:05 | RAD ---
TWO VIEWS CHEST: 08/10/20 PROVIDED CLINICAL HISTORY: Dyspnea. FINDINGS: Comparison is made with the study dated 07/07/19. The cardiac and mediastinal silhouette is unchanged in appearance. Right hemithoracic volume loss wit h elevation of the right hemidiaphragm and blunting of the right lateral costophrenic angle are stabl e with respect to prior. The left lung appears clear. There is no pleural fluid or pneumothorax appar ent. Opacity overlying the anterior aspect of the mid to lower thoracic spine on the lateral view is felt related to osteophyte formation and overlying rib confluence. IMPRESSION: Stable radiographic appearance of the chest. POS: AH
== END 2020-08-10 11:04 | disposition home or self-care (01) ==
LOC: BICRAD 11:03
PROVIDERS: ATTEND Internal Medicine Critical Care Medicine
DX: R06.00 Dyspnea, unspecified (principal)
CPT/HCPCS: 71046

== ENCOUNTER 2021-08-14 14:17 | Outpatient (CLI) | payer MEDICARE | END 2021-08-14 14:18 | disposition home or self-care (01) | LOC: BICRAD 14:17 | PROVIDERS: ATTEND Internal Medicine Critical Care Medicine | DX: R06.00 Dyspnea, unspecified (principal) | CPT/HCPCS: 71046 ==

== ENCOUNTER 2022-08-15 08:10 | Outpatient (CLI) | payer MEDICARE | END 2022-08-15 08:11 | disposition home or self-care (01) | LOC: RAD 08:10 | PROVIDERS: ATTEND Internal Medicine Critical Care Medicine | DX: R06.09 Other forms of dyspnea (principal) | CPT/HCPCS: 71046 ==

== ENCOUNTER 2023-09-26 09:39 | Outpatient (CLI) | payer MEDICARE | END 2023-09-26 09:40 | disposition home or self-care (01) | LOC: RAD 09:39 | PROVIDERS: ATTEND Internal Medicine Critical Care Medicine | DX: R06.00 Dyspnea, unspecified (principal) | CPT/HCPCS: 71046 ==

== ENCOUNTER 2024-08-28 08:42 | Outpatient (CLI) | payer MEDICARE | END 2024-08-28 08:43 | disposition home or self-care (01) | LOC: BICRAD 08:42 | PROVIDERS: ATTEND Family Medicine | DX: R06.00 Dyspnea, unspecified (principal); J98.6 Disorders of diaphragm; R91.8 Other nonspecific abnormal finding of lung field | CPT/HCPCS: 71046 ==

== ENCOUNTER 2024-08-28 12:59 | Inpatient (IN) | payer MEDICARE ==
[~2024-08-28 12:59] MED LIST: Iopamidol-370 76% 500 ML MDV (1 ML CHARGE) ONE
[2024-08-28 14:17] LABS: INR-International Normal Ratio 1.1; Prothrombin Time 14.2 sec (12.0-14.7)
[2024-08-28 14:18] LABS: PTT 40.1 sec (22.9-36.1)
[2024-08-28 14:19] LABS: Troponin I Less than 0.010 ng/mL (< 0.028)
[2024-08-28] MEDS ORDERED: cefTRIAXone (ROCEPHIN) 2 GM VIAL ONE (16:01)
[2024-08-28] MEDS ORDERED: Sodium Chloride 0.9% 100 ML ONE (16:02)
[2024-08-28] MEDS ORDERED: Acetaminophen 325 MG TAB PO PRN (16:15)
[2024-08-28] MEDS ORDERED: Ondansetron PF 4 MG/2 ML Vial IVP PRN (16:15)
[2024-08-28] MEDS ORDERED: Ondansetron ODT 4 MG TAB SL PRN (16:15)
[2024-08-28] MEDS ORDERED: Calcium Carbonate 500 MG ChewTAB PO PRN (16:32)
[2024-08-28] MEDS ORDERED: Bisacodyl 10 MG SUPP PR PRN (16:32)
[2024-08-28] MEDS ORDERED: Senokot S 8.6-50 MG TAB PO PRN (16:32)
[2024-08-28] MEDS ORDERED: Bisacodyl 5 MG TAB PO PRN (16:32)
[2024-08-28] MEDS ORDERED: Ondansetron ODT 4 MG TAB PO PRN (16:32)
[2024-08-28] MEDS ORDERED: Acetaminophen/Codeine 30-300mg Tablet PO PRN (16:32)
[2024-08-28] MEDS ORDERED: Insulin Lispro 100 UNIT/ML 10 ML VIAL SC PRN (16:37)
[2024-08-28] MEDS ORDERED: Dextrose 5% in Water 1,000 ML IV PRN (16:37)
[2024-08-28] MEDS ORDERED: Glucagon 1 MG/ML KIT IM PRN (16:37)
[2024-08-28] MEDS ORDERED: Dextrose 50% Abboject 50 ML SYRINGE SLOW IVP PRN (16:37)
[2024-08-28 17:47] VITALS: BMI 29.3
[2024-08-28] MEDS: methylPREDNISolone Sod Succ 40 MG VIAL IVP SCH (18:46)
[2024-08-28] MEDS: Azithromycin 500 MG in Sodium Chloride 0.9% 250 ML 250 ML IVPB SCH (18:47)
[2024-08-28] MEDS: Sodium Chloride 0.9% 1,000 ML IV SCH (18:48)
[2024-08-28] MEDS: Fish Oil 1,000 MG CAP PO SCH (22:34)
[2024-08-29 05:11] LABS: #Basophils 0.03 10x3/uL (0.0-0.2); #Eosinophils Less than 0.03 10x3/uL (0.0-0.7); %Basophils 0.3 % (0.0-1.0); %Eosinophils 0.1 % (0.0-10.0); %Monocytes 3.4 % (0.0-10.0); %Neutrophils 73.9 % (42.0-75.0); Hematocrit 32.5 % (42.0-52.0); Hemoglobin 10.3 g/dL (14.0-18.0); Mean Corpuscular HGB CONC 31.7 g/dL (32.0-36.0); Mean Corpuscular Hemoglobin 29.8 pg (27.0-31.0); Mean Corpuscular Volume 93.9 fL (78.0-98.0); Mean Platelet Volume 8.5 fL (7.4-10.4); Platelet Count 543 10x3/uL (130-400); RBC Distribution Width 14.8 % (11.5-14.5); Red Blood Cell (RBC) Count 3.46 mill/uL (4.70-6.10)
[2024-08-29] MEDS: Levothyroxine Sodium 100 MCG TAB PO SCH (05:26)
[2024-08-29 05:39] LABS: ALT (SGPT) 82 U/L (8-55); AST (SGOT) 70 U/L (5-34); Albumin 2.7 g/dL (3.4-4.8); Alkaline Phosphatase 68 U/L (40-110); Anion Gap 14 mmol/L (10-20); BUN (Urea Nitrogen) 19 mg/dL (8.4-25.7); Bilirubin, Total 0.4 mg/dL (0.2-1.2); Calc. Creatinine Clearance 69 mL/min (70-130); Calcium 9.4 mg/dL (7.8-10.44); Carbon Dioxide 25 mmol/L (23-31); Chloride 101 mmol/L (98-107); Estimated GFR 73; Globulin 5.1 g/dL (2.4-3.5); Glucose 140 mg/dL (83-110); Potassium 4.1 mmol/L (3.5-5.1); Protein, Total 7.8 g/dL (5.8-8.1); Sodium 136 mmol/L (136-145)
[2024-08-29] MEDS: Enoxaparin 40 MG (0.4 mL) SYRINGE SC SCH (09:52)
[2024-08-29] MEDS: Aspirin 81 mg Enteric Coated Tablet PO SCH (09:52)
[2024-08-29] MEDS: Furosemide 20 MG TAB PO SCH (09:52)
[2024-08-29] MEDS: Allopurinol 100 MG TAB PO SCH (09:52)
[2024-08-29] MEDS: methylPREDNISolone Sod Succ 40 MG VIAL IVP SCH (09:53)
[2024-08-29] MEDS: Chlorthalidone 25 MG TAB PO SCH (09:54)
[2024-08-29] MEDS: Ramipril 5 MG CAP PO SCH ×2 (10:50→20:14)
[2024-08-29] MEDS: cefTRIAXone\\ROCEPHIN 2 GM in Sodium Chloride 0.9% 100 ML IVPB SCH (15:56)
[2024-08-29] MEDS: Atorvastatin Calcium 10 MG TAB PO SCH (20:14)
[2024-08-29] MEDS: Guaifenesin DM 100-10/5 ML UDCUP PO PRN (20:18)
[2024-08-30 06:02] LABS: #Basophils 0.04 10x3/uL (0.0-0.2); %Basophils 0.4 % (0.0-1.0); %Eosinophils 1.4 % (0.0-10.0); %Lymphocytes 24.2 % (21.0-51.0); %Monocytes 8.2 % (0.0-10.0); %Neutrophils 64.2 % (42.0-75.0); Hematocrit 30.7 % (42.0-52.0); Mean Corpuscular HGB CONC 32.6 g/dL (32.0-36.0); Mean Corpuscular Hemoglobin 29.8 pg (27.0-31.0); Mean Corpuscular Volume 91.4 fL (78.0-98.0); Mean Platelet Volume 8.6 fL (7.4-10.4); Platelet Count 564 10x3/uL (130-400); RBC Distribution Width 14.8 % (11.5-14.5); Red Blood Cell (RBC) Count 3.36 mill/uL (4.70-6.10)
[2024-08-30 06:11] LABS: Anion Gap 14 mmol/L (10-20); BUN (Urea Nitrogen) 25 mg/dL (8.4-25.7); Calc. Creatinine Clearance 71 mL/min (70-130); Calcium 9.2 mg/dL (7.8-10.44); Carbon Dioxide 23 mmol/L (23-31); Chloride 103 mmol/L (98-107); Estimated GFR 75; Glucose 101 mg/dL (83-110); Potassium 3.7 mmol/L (3.5-5.1); Sodium 136 mmol/L (136-145)
[2024-08-30] MEDS ORDERED: Ipratropium/Albuterol 3 ML NEB NEB PRN (08:30)
[2024-08-30] MEDS: Benzocaine/Menthol 1 LOZ LOZ PO SCH (10:42)
[2024-08-30] MEDS: Benzocaine/Menthol 1 LOZ LOZ PO PRN (16:02)
[2024-08-30] MEDS: FLU (Fluad Triv) TS24-25 (65UP)/MF59C/PF 45 MCG/0.5 ML Syringe IM ONE (19:43)
[2024-08-30] MEDS: traZODone HCl 50 MG TAB PO SCH (21:45)
[2024-08-31 06:20] LABS: #Basophils 0.03 10x3/uL (0.0-0.2); %Basophils 0.3 % (0.0-1.0); %Eosinophils 1.1 % (0.0-10.0); %Lymphocytes 27.3 % (21.0-51.0); %Monocytes 8.9 % (0.0-10.0); %Neutrophils 61.1 % (42.0-75.0); Hematocrit 32.3 % (42.0-52.0); Hemoglobin 10.1 g/dL (14.0-18.0); Mean Corpuscular HGB CONC 31.3 g/dL (32.0-36.0); Mean Corpuscular Hemoglobin 29.7 pg (27.0-31.0); Mean Platelet Volume 8.3 fL (7.4-10.4); Platelet Count 570 10x3/uL (130-400); RBC Distribution Width 14.6 % (11.5-14.5)
[2024-08-31 06:45] LABS: Anion Gap 13 mmol/L (10-20); BUN (Urea Nitrogen) 20 mg/dL (8.4-25.7); Calc. Creatinine Clearance 78 mL/min (70-130); Calcium 9.4 mg/dL (7.8-10.44); Carbon Dioxide 27 mmol/L (23-31); Chloride 100 mmol/L (98-107); Estimated GFR 85; Glucose 101 mg/dL (83-110); Potassium 3.5 mmol/L (3.5-5.1); Sodium 136 mmol/L (136-145)
[2024-08-31] MEDS: FLU (Fluad Triv) TS24-25 (65UP)/MF59C/PF 45 MCG/0.5 ML Syringe ONE (07:30)
[2024-08-31 08:03] VITALS: TEMP 97.5
[2024-08-31] MEDS: predniSONE 50 MG TAB PO SCH (09:08)
[2024-08-31 11:48] VITALS: BP 163/72
== END 2024-08-31 11:21 | disposition home or self-care (01) | DRG 194 ==
LOC: ERS 12:59 → T4-B 16:04
PROVIDERS: ADMIT Internal Medicine; ATTEND Internal Medicine
DX: J18.9 Pneumonia, unspecified organism (principal); J90 Pleural effusion, not elsewhere classified; R91.1 Solitary pulmonary nodule; I10 Essential (primary) hypertension; E78.5 Hyperlipidemia, unspecified; E03.9 Hypothyroidism, unspecified; Z85.118 Personal history of other malignant neoplasm of bronchus and lung; M10.9 Gout, unspecified; E11.9 Type 2 diabetes mellitus without complications; Z90.49 Acquired absence of other specified parts of digestive tract; Z90.2 Acquired absence of lung [part of]; Z87.891 Personal history of nicotine dependence; R06.09 Other forms of dyspnea; R30.0 Dysuria; R50.9 Fever, unspecified; R05.1 Acute cough
CPT/HCPCS: 36415; 36416; 71275; 80048; 80053; 81001; 82550; 83605; 83735; 83880; 84484; 85025; 85379; 85610; 85730; 87040; 90653; 93005; 96374; J0456; J0696; J1650; J1815; J2919; J7030; J7050; J7512; Q9967

== ENCOUNTER 2024-09-29 09:09 | Outpatient (CLI) | payer MEDICARE | END 2024-09-29 09:10 | disposition home or self-care (01) | LOC: RAD 09:09 | PROVIDERS: ATTEND Internal Medicine Critical Care Medicine | DX: R06.00 Dyspnea, unspecified (principal); J90 Pleural effusion, not elsewhere classified | CPT/HCPCS: 71046 ==

== ENCOUNTER 2024-11-25 08:30 | Outpatient (CLI) | payer MEDICARE | END 2024-11-25 08:31 | disposition home or self-care (01) | LOC: BICCT 08:30 | PROVIDERS: ATTEND Internal Medicine Critical Care Medicine | DX: R91.8 Other nonspecific abnormal finding of lung field (principal) | CPT/HCPCS: 71250 ==

== ENCOUNTER 2025-10-19 13:08 | Outpatient (CLI) | payer MEDICARE | END 2025-10-19 13:09 | disposition home or self-care (01) | LOC: RAD 13:08 | PROVIDERS: ATTEND Internal Medicine Critical Care Medicine | DX: R06.00 Dyspnea, unspecified (principal) | CPT/HCPCS: 71046 ==